=== PATIENT | male | born 1985 | race Caucasian/White ===

== ENCOUNTER 2016-03-17 20:25 | Emergency (ER) | payer OTHER ==
[~2016-03-17] VITALS: Ht 165.1 cm; Wt 69.5 kg
[2016-03-17 20:31] VITALS: Ht 165.1 cm; Wt 69.5 kg
[2016-03-17] MEDS ORDERED: LORA-186 PO (21:21)
[2016-03-17] MEDS ORDERED: IBUP-1542 PO (21:21)
[2016-03-17] MEDS ORDERED: SODI30SP2 NS (21:21)
--- NOTE | 2016-03-17 22:02 | ERD ---
ER Documentation Chief Complaint Date/Time DATE: 03/17/16 TIME: 22:01 Chief Complaint sore throat and colds x 3 days HPI 30-year-old male presents to the emergency room complaining of a sore throat, nasal congestion, rhinorrhea, cough and sneezing for the past 3 days. Patient denies any fevers. Patient rates his mild in severity. He states he tried Tylenol earlier today without any relief ROS All systems reviewed and are negative except as per history of present illness. Medications Home Meds Active Scripts Ibuprofen* (Ibuprofen*) 600 Mg Tablet, 600 MG PO Q6H, #20 TAB Prov:COLTON VILLATORO PA-C 03/17/16 Sodium Chloride (Saline Nasal [place]) 30 Ml [place], 30 ML NS BID, #1 SPRAY Prov:COLTON VILLATORO PA-C 03/17/16 Loratadine* (Claritin*) 10 Mg Tablet, 10 MG PO DAILY, #30 TAB Prov:COLTON VILLATORO PA-C 03/17/16 Allergies Allergies: Coded Allergies: No Known Allergy (Unverified , 03/17/16) PMhx/Soc Medical and Surgical Hx: pt denies Surgical Hx History of Surgery: No Anesthesia Reaction: No Hx Neurological Disorder: No Hx Respiratory Disorders: Yes (URIs) Hx Cardiac Disorders: No Hx Psychiatric Problems: No Hx Miscellaneous Medical Probl: No Hx Alcohol Use: No Hx Substance Use: No Hx Tobacco Use: No Smoking Status: Never smoker Physical Exam Vitals Vital Signs Date Time Temp Pulse Resp B/P Pulse Ox O2 Delivery O2 Flow Rate FiO2 03/17/16 20:31 99.1 87 20 128/83 96 Physical Exam GENERAL: well-developed/well-nourished, in no apparent distress, non-toxic appearing HEAD: NC/AT, no swelling noted in frontal or maxillary areas EARS: bilateral tympanic membrane is intact without erythema or effusion NARES: nares congested THROAT: oropharynx non-erythematous without exudates, no tonsil enlargement, post nasal drip EYES: Conjunctiva normal NECK: Supple, no lymphadenopathy PULM: CTA bilaterally, no rales, rhonchi, or wheezing heard CV: Normal S1S2, RRR, good capillary refill GI: Soft, non-distended, normal bowel sounds, non-tender BACK: No midline tenderness, no masses EXT No clubbing, cyanosis, or edema NEURO: Alert and Orientated SKIN: Intact, normal turgor PSYCH: Normal mood and mentation Procedures/MDM MDM: 30-year-old male presents to the ER with symptoms of upper respiratory infection, which is most likely viral. My clinical suspicion is low suspicion for pneumonia, strep pharyngitis, or pulmonary emergencies due to physical examination. Patient's lungs were clear on examination. DISPOSITION: hemodynamically stable for discharge. Prescription for Claritin, ibuprofen and nasal spray was given to patient, discussed to return to the ED if not improving as expected or follow-up with a primary care physician. Patient understood and agreed with this plan. Departure Diagnosis: Primary Impression: URI (upper respiratory infection) URI type: unspecified viral URI Qualified Code: J06.9 - Viral upper respiratory tract infection Additional Impression: Pharyngitis Pharyngitis/tonsillitis etiology: unspecified etiology Qualified Code: J02.9 - Pharyngitis, unspecified etiology Condition: Stable Patient Instructions: When You Have a Sore Throat, Self-Care for Sore Throats, Preventing Common Respiratory Infections Additional Instructions: Take all medicines as directed. Call your primary care doctor TOMORROW for an appointment during the next 1-2 days.See the doctor sooner or return here if your condition worsens before your appointment time. Return to this facility if you are not improving as expected. COLTON VILLATORO PA-C Mar 17, 2016 22:02
== END 2016-03-17 21:35 | disposition home or self-care (01) ==
LOC: FTE 20:25
DX: J06.9 Acute upper respiratory infection, unspecified (principal); J02.9 Acute pharyngitis, unspecified
CPT/HCPCS: 99283